=== PATIENT | female | born 1970 | race Caucasian/White ===

== ENCOUNTER 2017-10-12 13:27 | Emergency (ER) | payer OTHER ==
[~2017-10-12] VITALS: Ht 157.5 cm; Wt 127.0 kg
[2017-10-12 13:51] VITALS: Ht 157.5 cm; Wt 127.0 kg
[2017-10-12 15:11] LABS: PLATELET COUNT 240 x10^3mcL (130-400); RED CELL DISTRIBUTION WIDTH 13.2 % (11.5-14.5)
[2017-10-12 15:59] LABS: ALBUMIN 3.8 g/dL (3.4-5.0); ALKALINE PHOSPHATASE 68 U/L (46-116); ALT/SGPT 50 U/L (14-59); AST/SGOT 26 U/L (15-37); BILIRUBIN TOTAL 0.4 mg/dL (0.20-1.00); CALCIUM 8.9 mg/dL (8.5-10.1); CARBON DIOXIDE 28.4 mmol/L (21-32); CHLORIDE SERUM 103 mmol/L (98-107); CREATININE SERUM 0.6 mg/dL (0.6-1.0); GFR1 > 60 mL/min; GLUCOSE SERUM 89 mg/dL (74-106); POTASSIUM SERUM 3.8 mmol/L (3.5-5.1); SODIUM SERUM 143 mmol/L (136-145); TOTAL PROTEIN, SERUM 7.5 g/dL (6.4-8.2)
[2017-10-12] MEDS ORDERED: GABAPENTIN800 M1 PO (16:02)
[2017-10-12] MEDS ORDERED: OXYCODONE HYDRO30 MG PO (16:03)
[2017-10-12] MEDS ORDERED: IBUPROFEN400 MG PO (16:03)
[2017-10-12] MEDS ORDERED: ZANAFLEX4 MG PO ×2 (16:04)
[2017-10-12] MEDS ORDERED: ASPIR LOW81 MG PO (16:05)
[2017-10-12 16:57] VITALS: BP 139/72
== END 2017-10-12 16:57 | disposition left against medical advice (07) ==
LOC: ED 13:27 → DU 15:56 → ED 16:57
PROVIDERS: Emergency Medicine
DX: S39.012A Strain of muscle, fascia and tendon of lower back, initial encounter (principal); S83.92XA Sprain of unspecified site of left knee, initial encounter; S83.91XA Sprain of unspecified site of right knee, initial encounter; G89.29 Other chronic pain; M54.9 Dorsalgia, unspecified; I10 Essential (primary) hypertension; E78.00 Pure hypercholesterolemia, unspecified; I24.9 Acute ischemic heart disease, unspecified; W01.0XXA Fall on same level from slipping, tripping and stumbling without subsequent striking against object, initial encounter; Y93.89 Activity, other specified; Y92.89 Other specified places as the place of occurrence of the external cause; Y99.8 Other external cause status
CPT/HCPCS: 83880; J2270; J2405